=== PATIENT | male | born 1940 | race Caucasian/White ===

== ENCOUNTER 2017-04-11 14:17 | Inpatient (IN) | payer OTHER ==
[~2017-04-11] VITALS: Ht 162.6 cm; Wt 59.0 kg
--- NOTE | ~2017-04-11 | HC ---
[facility] [place] [address] CONSULTATION Name: ISAIAH HOWARD Room #: 422-P [facility] IN M.R.#: [id number] Admission: 04/11/17 Attend Phys: Grayson Humphrey MD Discharge: Date of : 40 Report #: [id number] THIS REPORT FOR: //name// CC: Grayson Humphrey DATE OF SERVICE: 04/12/2017 HISTORY OF PRESENT ILLNESS: The patient is a 76-year-old white male with history of Parkinson's disease, chronic kidney disease, BPH, recent prostate infection approximately 2 weeks ago. He has had problems with weakness, confusion and significant hypotension. He was being seen in his Nephrology office when he had a syncopal episode. He ended up being admitted to [facility]. He was noted to have orthostasis with autonomic dysfunction with his Parkinson's disease. He has been started on midodrine and Florinef. He has also been given normal saline and IV fluids. We are seeing him in rehabilitation medicine consultation. PAST MEDICAL HISTORY: Includes Parkinson's disease, chronic kidney disease, autonomic dysfunction. PAST SURGICAL HISTORY: Cholecystectomy, vasectomy. ALLERGIES: No known drug allergies. MEDICATIONS: Please see the full medication listing. HABITS: No history of tobacco or alcohol abuse. SOCIAL HISTORY: Lives in a house with his . He could partially feed himself, but could not get the food, actually close than about 2 feet from his mouth when his tremor would significantly increase making it difficult. He also was able to assist with his shirt, but again his was involved to further help him with cares. He utilized a walker at home. They live in a house with no steps. Both are retired. REVIEW OF SYSTEMS: Did not offer any current complaints of chest pain, shortness of breath or abdominal discomfort. Biggest issue is the orthostatic hypotension and syncope along with his functional deficits from the Parkinson's. FAMILY HISTORY: Noncontributory. PHYSICAL EXAMINATION: GENERAL: A 76-year-old white male in no obvious distress. He is alert, pleasant. Tends to defer number of the answers to his . He is able to express himself, reasonably well, however. [facility] [address] [place] [address] CONSULTATION Name: ISAIAH HOWARD Room #: 422-P [facility] IN .R.#: [id number] Admission: 04/11/17 Attend Phys: Grayson Humphrey MD Discharge: Date of : 40 Report #: [id number] VITAL SIGNS: Last recorded temperature is 98, pulse 54, respirations 16, blood pressure 143/55. HEENT: He does have some evidence of masked facies. Facies appeared symmetric. EXTREMITIES: Upper extremities, he does have some cogwheeling of the wrists and elbows. Strength is probably a grade 3+/5. Lower extremities: He does have some rigidity. There is no focal calf swelling. Strength is 3+ to 4-/5. DTRs are somewhat difficult to test with this rigidity. He does need assistance with basic functional mobility skills. ASSESSMENT: A 76-year-old white male with the following problem list: 1. Parkinson's disease. 2. Orthostasis with syncopal episode. 3. Autonomic dysfunction. 4. Significant functional mobility and activities of daily living deficits. 5. Chronic kidney disease. 6. History of depression. 7. History of prostate infection a couple of weeks ago. PLAN: Would anticipate that the patient should be a good acute in-hospital inpatient rehabilitation candidate. Physical therapy is currently assessing. There are significant issues with his orthostasis, autonomic dysfunction, medication management. Nephrology is involved and they could continue to follow when he comes over to the rehab [facility]. This would not occur if he would go to a retirement facility. At this point, we are going to continue to follow along with you, see how he does in physical therapy and consider him for a short acute in-hospital inpatient rehabilitation stay. Discussion was held with the patient's . We will be glad to follow along with you. By: 1449 0220 Fred Loaiza MD /BEATA
--- NOTE | ~2017-04-11 | HC ---
[facility] [place] [address] CONSULTATION Name: ISAIAH HOWARD Room #: 422-P [facility] IN M.R.#: [id number] Admission: 04/11/17 Attend Phys: Grayson Humphrey MD Discharge: 04/13/17 Date of : 40 Report #: [id number] THIS REPORT FOR: //name// CC: Grayson Humphrey DATE OF SERVICE: 04/12/2017 REASON FOR CONSULTATION: Chronic kidney disease and orthostatic hypotension. HISTORY OF PRESENT ILLNESS: The patient is well known to our service with rather severe and progressive Parkinson's disease and chronic kidney disease with a baseline creatinine approximately 2 or so. He has developed progressive weakness and presyncope with sitting and standing, was seen in the office yesterday with very low blood pressures and admitted. Blood pressures were in the 60s and at one point we could not record a blood pressure he had semi-syncopal episode, now much better. He has been treated with IV fluids, midodrine and Florinef. PAST MEDICAL HISTORY: He has had some evidence of BPH. He has been started on Flomax. He has longstanding, severe and progressive Parkinson's disease. He has got the CKD status post episode of acute kidney injury, status post episode of sepsis probably 6-7 years ago at [facility]. He has had in addition history of prior hypertension and cholecystectomy. SOCIAL HISTORY: Lives at home with his , no cigarettes or alcohol. HOME MEDICATIONS: Xanax 0.5 mg t.i.d., Zoloft 100 mg daily, amantadine 100 mg daily, Protonix 40 mg daily, Sinemet 25/100 one bedtime, aspirin 81 mg daily. He has been on Keflex 500 mg b.i.d. and Flomax 0.4 mg daily. FAMILY HISTORY: Noncontributory. REVIEW OF SYSTEMS: GENERAL: He has been weak and having these presyncopal episodes. EYES: His vision has been okay. ENT: Hearing okay. No trouble with swallowing. ENDOCRINE: No diabetes or thyroid disease. RESPIRATORY: No shortness of breath, chest pain, pleuritic pain. CARDIAC: No angina, myocardial infarction, palpitations or swelling. GASTROINTESTINAL: No nausea, vomiting or diarrhea. Appetite has not been that good. GENITOURINARY: Bit of a sluggish urinary stream. NEUROLOGIC: He has had Parkinson's with tremor. Depression affect, decreased movement. [facility] [address] [place] [address] CONSULTATION Name: ISAIAH HOWARD Room #: 422-P [facility] IN ..#: [id number] Admission: 04/11/17 Attend Phys: Grayson Humphrey MD Discharge: 04/13/17 Date of : 40 Report #: [id number] PHYSICAL EXAMINATION: GENERAL: The patient was seen today, bright and alert, sitting up in bed. SKIN: Unremarkable. SKELETAL: Thin. HEENT: Extraocular movements are full. No scleral icterus. Hearing and vision intact. Mucous membranes moist. Tongue, buccal mucosa benign. NECK: Supple, no JVD. CHEST: Clear to auscultation. HEART: Regular. ABDOMEN: Soft, nontender. EXTREMITIES: No edema. LABORATORY DATA: Creatinine 2.4, down to 2.0. ASSESSMENT AND PLAN: 1. Chronic kidney disease, relatively stable. 2. Postural hypotension. Some of the medications may be contributing including Sinemet, Zoloft and Xanax. These may need to be adjusted. He has been started on midodrine and Florinef. He has got IV fluids overnight, he is doing much better. We will do orthostatic pressures and see what we can do about his symptoms. <ELECTRONICALLY SIGNED> By: Dani Alanis MD 04/14/17 1020 0958 1031 Dani Alanis MD /nt
--- NOTE | ~2017-04-11 | EKG ---
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
[2017-04-11 14:18] VITALS: BP 136/63
[2017-04-11 14:51] LABS: HEMATOCRIT 32.1 % (42.0-52.0); MCH 31.2 pg (26.0-34.0); MCHC 34.4 g/dL (28.0-37.0); MCV 90.5 fL (80.0-100.0); RBC 3.54 mil/uL (4.50-6.00); RDW 14.8 % (10.5-14.5); WBC 7.7 thou/uL (4.0-11.0)
[2017-04-11 14:56] LABS: ANION GAP 6 mmol/L (7-16); BUN 24 mg/dL (7-18); CALCIUM 8.9 mg/dL (8.5-10.1); CHLORIDE 106 mmol/L (98-107); CO2 26 mmol/L (21-32); CREATININE 2.4 mg/dL (0.7-1.3); GLUCOSE 99 mg/dL (74-106); POTASSIUM 4.7 mmol/L (3.5-5.1); SODIUM 138 mmol/L (136-145)
[2017-04-11 15:05] LABS: ALBUMIN 3.7 g/dL (3.4-5.0); ALKALINE PHOSPHATASE 88 U/L (46-116); MAGNESIUM 2.4 mg/dL (1.8-2.4); SGOT 28 U/L (15-37); SGPT 9 U/L (30-65); TOTAL BILIRUBIN 0.5 mg/dL (<0.1-1.0); TOTAL PROTEIN 6.9 g/dL (6.4-8.2); TROPONIN-I < 0.04 ng/mL (<0.04-0.07)
[2017-04-11 15:15] LABS: TOTAL CELL COUNT 100
[2017-04-11 15:16] LABS: PLATELET COUNT 219 thou/uL (150-400)
[2017-04-11 15:33] LABS: MANUAL DIFF YES
[2017-04-11 15:36] LABS: ABSOLUTE NEUTROPHILS 4.1 thou/uL (1.4-8.2)
[2017-04-11 16:03] VITALS: BP 137/88
[2017-04-11 16:21] VITALS: BP 137/88
[2017-04-11 16:57] VITALS: BP 137/88
[2017-04-11] MEDS ORDERED: FOLIC ACID1 MG PO (17:09)
[2017-04-11] MEDS ORDERED: XANAX 0.5 MG0.5 MG PO (17:09)
[2017-04-11] MEDS ORDERED: ZOLOFT100 MG PO (17:09)
[2017-04-11] MEDS ORDERED: AMANTADINE100 M1 PO (17:10)
[2017-04-11] MEDS ORDERED: PROTONIX40 M1 PO (17:10)
[2017-04-11] MEDS ORDERED: KEFLEX500 MG PO (17:11)
[2017-04-11] MEDS ORDERED: ASPIR 8181 MG PO (17:11)
[2017-04-11] MEDS ORDERED: SINEMET 25-1001 EAC1 PO (17:11)
[2017-04-11] MEDS ORDERED: FLOMAX0.4 MG PO (17:12)
[2017-04-11] MEDS ORDERED: METAFOLBIC TAB1 EACH PO (17:13)
[2017-04-11] MEDS ORDERED: ALBUTEROL2.5 MG/31 INH (17:14)
[2017-04-11] MEDS ORDERED: COLACE100 MG PO (18:23)
[2017-04-11] MEDS ORDERED: MIRALAX17 GM PO (18:24)
[2017-04-11 19:35] LABS: URINE BILIRUBIN NEGATIVE (Negative); URINE BLOOD NEGATIVE (Negative); URINE COLOR YELLOW; URINE GLUCOSE-RANDOM* NEGATIVE (Negative); URINE KETONES NEGATIVE (Negative); URINE LEUKOCYTES-REFLEX NEGATIVE (Negative); URINE PROTEIN (DIPSTICK) NEGATIVE (Negative); URINE UROBILINOGEN 0.2 E.U./dl (0.2-1.0)
[2017-04-11 20:56] VITALS: BP 157/71
[2017-04-12 05:38] VITALS: BP 137/77
[2017-04-12 06:34] LABS: HEMATOCRIT 25.8 % (42.0-52.0); MCH 30.5 pg (26.0-34.0); MCHC 33.8 g/dL (28.0-37.0); MCV 90.3 fL (80.0-100.0); RBC 2.85 mil/uL (4.50-6.00); RDW 14.4 % (10.5-14.5); WBC 5.4 thou/uL (4.0-11.0)
[2017-04-12 06:42] LABS: HEMOGLOBIN 8.7 gm/dL (14.0-18.0)
[2017-04-12 07:14] LABS: ALBUMIN 2.8 g/dL (3.4-5.0); CALCIUM 7.8 mg/dL (8.5-10.1); PHOSPHORUS 3.2 mg/dL (2.5-4.9); POTASSIUM 4.3 mmol/L (3.5-5.1)
[2017-04-12 08:00] VITALS: BP 143/55
[2017-04-12 10:40] VITALS: BP 114/53; BP 80/53
[2017-04-12] MEDS ORDERED: MIDODRINE HCL 55 M1 PO (10:57)
[2017-04-12 16:00] VITALS: BP 96/40
[2017-04-12 16:20] VITALS: BP 167/53
[2017-04-12 19:18] VITALS: BP 170/65
[2017-04-13 01:30] VITALS: BP 104/53; BP 148/54
[2017-04-13 03:00] VITALS: BP 148/54
[2017-04-13 07:01] LABS: ABSOLUTE NEUTROPHILS 4.2 thou/uL (1.4-8.2); BASOPHILS 0.7 % (0.0-2.0); EOSINOPHILS 5.8 % (0.0-3.0); HEMOGLOBIN 9.2 gm/dL (14.0-18.0); LYMPHOCYTES 25.2 % (24.0-44.0); MCH 30.7 pg (26.0-34.0); MCV 90.2 fL (80.0-100.0); MONOCYTES 8.4 % (1.0-8.0); PLATELET COUNT 160 thou/uL (150-400); POLYS 59.9 % (36.0-66.0); RBC 2.99 mil/uL (4.50-6.00); RDW 14.5 % (10.5-14.5)
[2017-04-13 07:04] LABS: MANUAL DIFF NO
[2017-04-13 07:21] LABS: CALCIUM 8.2 mg/dL (8.5-10.1); POTASSIUM 3.6 mmol/L (3.5-5.1); TOTAL BILIRUBIN 0.4 mg/dL (<0.1-1.0); TOTAL PROTEIN 5.6 g/dL (6.4-8.2)
[2017-04-13 07:50] VITALS: BP 148/56
[2017-04-13] MEDS ORDERED: MIDODRINE HCL 55 M1 PO (09:17)
[2017-04-13] MEDS ORDERED: FLORINEF ACETA0.1 MG PO (11:03)
== END 2017-04-13 11:39 | DRG 73 ==
LOC: ER 14:17 → 4E 15:29 → EROBS 15:29 → 4E 16:49
PROVIDERS: Emergency Medicine; Internal Medicine; Internal Medicine Nephrology; Nurse Practitioner Family
DX: G90.8 Other disorders of autonomic nervous system (principal); N17.0 Acute kidney failure with tubular necrosis; I95.1 Orthostatic hypotension; N18.9 Chronic kidney disease, unspecified; G20 Parkinson's disease; F32.9 Major depressive disorder, single episode, unspecified; N40.0 Benign prostatic hyperplasia without lower urinary tract symptoms; T42.8X5A Adverse effect of antiparkinsonism drugs and other central muscle-tone depressants, initial encounter; T43.225A Adverse effect of selective serotonin reuptake inhibitors, initial encounter; T44.6X5A Adverse effect of alpha-adrenoreceptor antagonists, initial encounter; Z90.49 Acquired absence of other specified parts of digestive tract; Z79.82 Long term (current) use of aspirin; Z87.891 Personal history of nicotine dependence; Z79.899 Other long term (current) drug therapy; Y92.89 Other specified places as the place of occurrence of the external cause
CPT/HCPCS: 10084

== ENCOUNTER 2017-04-13 11:13 | Inpatient (IN) | payer OTHER ==
[~2017-04-13] VITALS: Ht 162.6 cm; Wt 57.3 kg
--- NOTE | ~2017-04-13 | PLAN ---
[facility] [place] [address] REHAB UNIT PLAN OF CARE Name: ISAIAH HOWARD Room #: 514-P ADM IN M.R.#: [id number] Admission: 04/13/17 Attend Phys: Fred Loaiza MD Discharge: Date of : 40 Report #: [id number] THIS REPORT FOR: //name// CC: Fred Beachhen Kam DATE OF SERVICE: 04/15/2017 HISTORY OF PRESENT ILLNESS: The patient is seen back today in followup. He was in no distress. Temperature 36.4, pulse 64, respirations 16, blood pressure 145/91. Nephrology is involved to check blood pressure sitting and standing. Noted to have increased midodrine. He has Parkinson's disease with advanced disease and autonomic dysfunction. Functionally, transfers are max assist. Gait mod assist 4 feet and OT, lower body dressing is dependent. Speech therapy, he has [id number] comprehensive deficits. ASSESSMENT: 1. Parkinson's disease. 2. Orthostasis with syncopal episode. 3. Autonomic dysfunction. 4. Significant functional mobility and ADL deficits. 5. Chronic kidney disease. 6. History of depression. 7. History of prostate infection. PLAN: The overall plan of care is based on the preadmission screen, post-admission physician evaluation and information garnered from therapy assessments. 1. Estimated length of stay is probably around 1-2 weeks, which was discussed with his . 2. Medical prognosis is reasonably good. 3. Anticipated interventions includes the interdisciplinary acute inpatient rehabilitation program with the goal of maximizing the patient's functional independence, so that he can hopefully return back to his prior living situation. 4. Anticipated functional outcomes would be for the patient to become modified independent with transfers, mobility and ADLs as well as his cognition and communication, so that he can return back to the home setting. He will be involved with the interdisciplinary acute inpatient rehabilitation program. Nursing to assist regarding medication management, skin care prophylaxis, bowel and bladder issues and nursing education. The applications consultant physicians will continue to follow. 5. Anticipated functional outcomes would be for the patient to hopefully improve as far as basic transfers, ability to do his ADLs, improve as far as his orthostasis, so he does not have the syncopal episodes with activity and improve as far as cognition and communication issues. 6. Discharge destination is back to the home setting with his . 7. Expected therapy by discipline includes PT, OT and speech [address] [place] [address] REHAB UNIT PLAN OF CARE Name: ISAIAH HOWARD Room #: 514-P [facility] IN .R.#: [id number] Admission: 04/13/17 Attend Phys: Fred Loaiza MD Discharge: Date of : 40 Report #: [id number] hour per day, each five days a week throughout the duration of the acute inpatient rehabilitation stay. <ELECTRONICALLY SIGNED> By: Fred Loaiza MD 04/22/17 1423 0856 2302 Fred Loaiza MD /BEATA
--- NOTE | ~2017-04-13 | HC ---
[facility] [place] [address] CONSULTATION Name: ISAIAH HOWARD Room #: 514-P [facility] IN M.R.#: [id number] Admission: 04/13/17 Attend Phys: Fred Loaiza MD Discharge: Date of : 40 Report #: [id number] THIS REPORT FOR: //name// CC: Fred Beachhen Kam DATE OF SERVICE: 04/13/2017 REASON FOR CONSULTATION: To assess psycho and neuropsychological status to provide information for treatment planning on the rehabilitation unit, to which he was admitted on 04/13/2017. HISTORY OF PRESENT ILLNESS: Records indicate that the patient is a 76-year-old white male with a history of Parkinson disease and chronic kidney disease. He has recently had problems with weakness, confusion and significant hypotension. He was being seen in his nephrology office when he had a syncopal episode. He stated to this program writer that earlier that day, he had been unable to get out of bed. The history and physical assessment by Dr. Loaiza listed the following problem list: 1. Parkinson disease. 2. Orthostasis with syncopal episode. 3. Autonomic dysfunction. 4. Significant functional mobility and ADL deficits. 5. Chronic kidney disease. 6. History of depression. 7. History of prostate infection 2 weeks prior. EXAMINATION FINDINGS: The patient was examined in his hospital room, seated in a recliner, and was alert and awake and agreeable to speak with this program writer. He was able to report the events leading up to his admission and to discuss his recent and remote past with very good detail. 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 He reported that his Parkinson disease eventually became so serious that he could not do this work anymore and he is now unable to drive for the same reason. Mood was observed to be euthymic and when asked to discuss his mood, he stated that "it was pretty good and volunteered. I do not have any suicidal tendencies." He stated that he anticipates recovering and returning to his prior level of function. He reported he greatly enjoys his grandson's football games and wishes he could be there this week. The patient did complain that he finds himself leaning to the right and stated that this has not been a symptom that he noticed in the past. He did state that [facility] [address] [address] CONSULTATION Name: ISAIAH HOWARD Room #: 514-P [facility] IN M.R.#: [id number] Admission: 04/13/17 Attend Phys: Fred Loaiza MD Discharge: Date of : 40 Report #: [id number] he believes his Parkinson disease began many years ago while he was still working for the [employer], but it was just unrecognized at that time. He stated that he was cranky and had difficulty dealing with stress without becoming overly angry. This was back in the late before he retired in 1998. The mini-mental status examination 2 was utilized and the patient scored in the low average range at the 14th percentile with regard to his overall level of mental or cognitive functioning at this point. The only major deficit was in recall, in which he could not recall none of 3 previously registered words after 3 minutes. He was able to perform 4 of 5 steps of the calculation task and good measure of concentration and the only other difficulty had was with the figure copy, but this appeared to be due to his Parkinson symptoms. CONCLUSION: This patient presents as a pleasant, coherent and friendly 76-year-old man who has fairly good insight into his various diagnoses and who reports that he is motivated to work in rehab and to take a medical advice to facilitate his recovery. His mental status appears to be within normal limits with some slight deficits of memory and with obvious physical deficits due to the Parkinson disease, i.e., the tremor. 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 RECOMMENDATIONS: For full participation in the rehab program as he does not appear to need psychology or neuropsychology intervention at this time. <ELECTRONICALLY SIGNED> By: Fred Diane, PhD 04/22/17 1510 1950 0336 Fred Diane, PhD /nt
--- NOTE | ~2017-04-13 | H ---
[facility] [place] [address] HISTORY AND PHYSICAL Name: ISAIAH HOWARD Room #: 514-P [facility] IN M.R.#: [id number] Admission: 04/13/17 Attend Phys: Fred Loaiza MD Discharge: Date of : 40 Report #: [id number] THIS REPORT FOR: //name// CC: Fred Humphrey DATE OF SERVICE: 04/13/2017 HISTORY OF PRESENT ILLNESS: The patient is a 76-year-old white male with history of Parkinson's disease, chronic kidney disease, BPH, recent prostate infection approximately 2 weeks prior to his most recent admission. He has had problems with weakness, confusion, and significant hypotension. He was being seen in his Nephrology office when he had a syncopal episode. He ended up being admitted to [facility]. He was noted to have orthostasis with autonomic dysfunction with his Parkinson's disease. He was started on midodrine and Florinef. He was also given normal feeling with IV fluids. He was noted to have a significant functional deficits with his Parkinson's and the orthostasis and has now been admitted for an acute in-hospital inpatient rehabilitation stay. PAST MEDICAL HISTORY: Parkinson's disease, chronic kidney disease, autonomic dysfunction. PAST SURGICAL HISTORY: Cholecystectomy and vasectomy. ALLERGIES: No known drug allergies. MEDICATIONS: Please see the full medication listing. Each of these was individually reconciled upon admission and includes vitamins, herbals, and supplements. HABITS: No history of tobacco or alcohol abuse. SOCIAL HISTORY: Lives in a house with his . He could partially feed himself, but could not actually get the fluid closer than about 2 feet from his mouth when his tremor was significantly increased making it difficult. He was able to assist with his shirt, but his did help him further with cares. He did use a walker at home. They live in a house with no steps. Both are retired. REVIEW OF SYSTEMS: No complaints of chest pain, shortness of breath or abdominal discomfort. Problems continue to be the decreased functional mobility and ADLs and his orthostatic symptomatology. FAMILY HISTORY: Noncontributory. [facility] [address] [place] [address] HISTORY AND PHYSICAL Name: ISAIAH HOWARD Room #: 514-P [facility] IN M.R.#: [id number] Admission: 04/13/17 Attend Phys: Fred Loaiza MD Discharge: Date of : 40 Report #: [id number] PHYSICAL EXAMINATION: GENERAL: A 76-year-old white male in no distress. Admission vitals are being obtained. Vitals from yesterday prior to admission did show a significant orthostatic drop, decreasing to 80/53 with standing or with sitting it was 114/53. Later he dropped from 167/53 sitting to 96/40 standing. The orthostatic pressures have not been checked yet while on rehabilitation. NEUROLOGIC: He is alert, limited verbalization, we will typically defer to his . He can express himself and follow basic commands. He does have some evidence of mass. HEENT: Facies otherwise appeared symmetric. CHEST: Sounded clear to auscultation. CARDIOVASCULAR: Regular rate and rhythm. ABDOMEN: Bowel sounds positive, nontender. GENITOURINARY AND RECTAL: Deferred. Upper extremities reveal some cogwheeling of the risks and goals. Strength is probably a grade 3+/5. EXTREMITIES: He does have some rigidity with strength grade 3+ to 4-/5. DTRs are somewhat difficult to test with the rigidity. He needs assistance with basic functional mobility skills. He has not been seen by the therapist yet on rehabilitation, but he has been max assist with sit to stand. He has been ambulating a short distance, mod assist with a walker. ASSESSMENT: A 76-year-old white male with the following problem list: 1. Parkinson's disease. 2. Orthostasis with syncopal episode. 3. Autonomic dysfunction. 4. Significant functional mobility and ADL deficits. 5. Chronic kidney disease. 6. History of depression. 7. History of prostate infection a couple of weeks prior. PLAN: The patient is admitted for acute in-hospital inpatient rehabilitation. From a postadmission physician evaluation perspective, there are no relevant changes since the preadmission screening. Please see the above review of prior and current medical and functional conditions and comorbidities. Please see the patient's previous and current functional status. As far as risk of complications, he does have the above noted comorbidities. Initial plan of care involves the interdisciplinary acute inpatient rehabilitation program with goal of maximizing his functional independence, so he can hopefully return back to his prior living situation. Prognosis is reasonably good with estimated length of stay probably 1-2 weeks. Potential barriers would include his medical comorbidities and decreased functional status. The patient meets diagnostic criteria for an acute in-hospital inpatient rehabilitation stay. He meets medical necessity criteria. He does have the tolerance for an acute rehabilitation level of care and has appropriate discharge goals back to the home setting. We will have Nephrology continue to [address] [address] HISTORY AND PHYSICAL Name: ISAIAH HOWARD Room #: 514-P ADM IN M.R.#: [id number] Admission: 04/13/17 Attend Phys: Fred Loaiza MD Discharge: Date of : 40 Report #: [id number] follow along with internal medicine to try to further improve his orthostatic hypotension and autonomic dysfunction. We will be working on improving his strength and endurance and independence with the goal of returning him back home with his . <ELECTRONICALLY SIGNED> By: Fred Loaiza MD 04/22/17 1423 1204 1314 Fred Loaiza MD /[facility]
[~2017-04-13 11:13] MED LIST: ALBUTEROL2.5 MG/31 INH; AMANTADINE100 M1 PO; ASPIR 8181 MG PO; COLACE100 MG PO; FLOMAX0.4 MG PO; FLORINEF ACETA0.1 MG PO; FOLIC ACID1 MG PO; KEFLEX500 MG PO; METAFOLBIC TAB1 EACH PO; MIDODRINE HCL 55 M1 PO; MIRALAX17 GM PO; PROTONIX40 M1 PO; SINEMET 25-1001 EAC1 PO; XANAX 0.5 MG0.5 MG PO; ZOLOFT100 MG PO
[2017-04-13 12:00] VITALS: BP 98/37
[2017-04-13 20:05] VITALS: BP 174/69
[2017-04-14 04:35] LABS: HEMATOCRIT 26.5 % (42.0-52.0); HEMOGLOBIN 9.1 gm/dL (14.0-18.0); MCH 30.7 pg (26.0-34.0); MCHC 34.2 g/dL (28.0-37.0); MCV 89.8 fL (80.0-100.0); RBC 2.95 mil/uL (4.50-6.00); RDW 14.5 % (10.5-14.5); WBC 6.3 thou/uL (4.0-11.0)
[2017-04-14 04:37] LABS: CALCIUM 8.3 mg/dL (8.5-10.1); CREATININE 1.9 mg/dL (0.7-1.3); POTASSIUM 3.6 mmol/L (3.5-5.1)
[2017-04-14 14:24] LABS: URINE BILIRUBIN NEGATIVE (Negative); URINE BLOOD NEGATIVE (Negative); URINE COLOR YELLOW; URINE GLUCOSE-RANDOM* NEGATIVE (Negative); URINE KETONES NEGATIVE (Negative); URINE LEUKOCYTES-REFLEX NEGATIVE (Negative); URINE PROTEIN (DIPSTICK) NEGATIVE (Negative); URINE UROBILINOGEN 0.2 E.U./dl (0.2-1.0)
[2017-04-14 20:25] VITALS: BP 159/76
[2017-04-15 04:20] VITALS: BP 133/49
[2017-04-15 04:21] VITALS: BP 140/73
[2017-04-15 08:16] VITALS: BP 145/91; BP 156/78
[2017-04-15 19:48] VITALS: BP 173/83
[2017-04-16 07:58] LABS: ALBUMIN 3.1 g/dL (3.4-5.0); CALCIUM 8.5 mg/dL (8.5-10.1); PHOSPHORUS 3.8 mg/dL (2.5-4.9); POTASSIUM 4.3 mmol/L (3.5-5.1)
[2017-04-16 10:04] VITALS: BP 172/55
[2017-04-16 13:30] VITALS: BP 165/81
[2017-04-16 17:15] VITALS: BP 177/78
[2017-04-16 20:15] VITALS: BP 169/66
[2017-04-17 11:35] VITALS: BP 124/57
[2017-04-17 11:40] VITALS: BP 100/54
[2017-04-17 20:37] VITALS: BP 181/65
[2017-04-17 20:42] VITALS: BP 118/101
[2017-04-18 07:06] LABS: ALBUMIN 3.1 g/dL (3.4-5.0); CALCIUM 8.4 mg/dL (8.5-10.1); PHOSPHORUS 3.7 mg/dL (2.5-4.9); POTASSIUM 3.8 mmol/L (3.5-5.1)
[2017-04-18 08:00] VITALS: BP 156/79
[2017-04-18 08:05] VITALS: BP 147/74
[2017-04-18] MEDS ORDERED: ECONAZOLE 1% CR30 G1 TOP (14:41)
[2017-04-18 20:05] VITALS: BP 183/61
[2017-04-19 06:41] LABS: CALCIUM 8.4 mg/dL (8.5-10.1); PHOSPHORUS 3.9 mg/dL (2.5-4.9); POTASSIUM 3.9 mmol/L (3.5-5.1)
[2017-04-19 08:11] VITALS: BP 149/56
[2017-04-19 19:33] VITALS: BP 170/72
[2017-04-20 09:00] VITALS: BP 112/51; BP 121/54
[2017-04-20 21:37] VITALS: BP 175/68
[2017-04-21 08:00] VITALS: BP 171/68
[2017-04-21 19:51] VITALS: BP 157/70
[2017-04-22 08:00] VITALS: BP 117/46; BP 138/67
[2017-04-22 20:00] VITALS: BP 135/59
[2017-04-23 08:30] VITALS: BP 163/73
[2017-04-23 19:40] VITALS: BP 141/93
[2017-04-24 08:15] VITALS: BP 177/64
[2017-04-24 11:38] VITALS: BP 157/61
[2017-04-24 21:09] VITALS: BP 151/68
[2017-04-25 07:34] LABS: ALBUMIN 3.1 g/dL (3.4-5.0); CALCIUM 8.2 mg/dL (8.5-10.1); CREATININE 1.9 mg/dL (0.7-1.3); PHOSPHORUS 3.2 mg/dL (2.5-4.9); POTASSIUM 4.1 mmol/L (3.5-5.1)
[2017-04-25 08:27] VITALS: BP 167/76
[2017-04-25 11:56] VITALS: BP 150/66
[2017-04-25 20:30] VITALS: BP 156/65
[2017-04-26 07:49] VITALS: BP 152/67
[2017-04-26 11:45] VITALS: BP 149/52
[2017-04-26 20:01] VITALS: BP 177/65
[2017-04-27] MEDS ORDERED: FLORINEF ACETA0.1 MG PO (07:47)
[2017-04-27 09:35] VITALS: BP 165/97
[2017-04-27] MEDS ORDERED: MIDODRINE HCL 55 M1 PO (09:59)
[2017-04-27 12:20] VITALS: BP 165/97
[2017-04-27 14:40] VITALS: BP 165/97
[2017-04-27 14:41] VITALS: BP 165/97
== END 2017-04-27 14:30 | disposition home health service (06) | DRG 57 ==
PROVIDERS: Hospitalist; Internal Medicine Nephrology; Nurse Practitioner Family; Physical Medicine & Rehabilitation
DX: G20 Parkinson's disease (principal); F32.9 Major depressive disorder, single episode, unspecified; N18.9 Chronic kidney disease, unspecified; G90.8 Other disorders of autonomic nervous system; N40.0 Benign prostatic hyperplasia without lower urinary tract symptoms; I95.1 Orthostatic hypotension; K21.9 Gastro-esophageal reflux disease without esophagitis; R53.81 Other malaise; K59.00 Constipation, unspecified; R30.0 Dysuria; R03.0 Elevated blood-pressure reading, without diagnosis of hypertension; J45.909 Unspecified asthma, uncomplicated; M25.571 Pain in right ankle and joints of right foot; Z98.52 Vasectomy status; Z90.49 Acquired absence of other specified parts of digestive tract
CPT/HCPCS: 10112

== ENCOUNTER 2017-05-30 12:27 | Inpatient (IN) | payer OTHER ==
[~2017-05-30] VITALS: Ht 162.6 cm; Wt 55.2 kg
--- NOTE | ~2017-05-30 | HC ---
[facility] [place] [address] CONSULTATION Name: ISAIAH HOWARD Room #: 446-P [facility] IN .R.#: [id number] Admission: 05/30/17 Attend Phys: Pratik Mustafa MD Discharge: Date of : 40 Report #: [id number] THIS REPORT FOR: //name// CC: Pratik Beachhen Kam DATE OF SERVICE: 05/31/2017 ATTENDING PHYSICIAN: Dr. Mustafa. REASON FOR CONSULTATION: Chronic kidney disease. HISTORY OF PRESENT ILLNESS: The patient is extremely well known to our service with progressive Parkinson disease and chronic kidney disease with a baseline creatinine that runs between 2 and 2.5. He was recently hospitalized in the acute care setting and the rehab setting with severe orthostatic hypotension and was treated with multiple medications including midodrine and Florinef. He stabilized. He did well with his rehabilitation, was felt ready to go home and was doing reasonably well at home until 2 days ago when he fell or hurt his hip, could not walk and was readmitted. His creatinine was 2.5, more or less at his baseline serum creatinine. PAST MEDICAL HISTORY: Parkinson disease. He has a previous episode of acute renal failure, which for the most part resolved, but he is left with some chronic kidney disease. He has severe autonomic neuropathy with orthostatic hypotension as mentioned previously, treated with Florinef and midodrine, and his Parkinson's treated with Sinemet and amantadine. Also remarkable for benign prostatic hypertrophy, he has been on Flomax and has had hypertension and a previous cholecystectomy. SOCIAL HISTORY: Lives at home with his . No cigarettes or alcohol. FAMILY HISTORY: Noncontributory. REVIEW OF SYSTEMS: GENERAL: He had been doing reasonably well at home. He is chronically weak, can walk just a little bit with his walker. EYES: No trouble with his vision. ENT: Hearing okay, swallows okay. ENDOCRINE: No diabetes or thyroid disease. RESPIRATORY: Denies shortness of breath, chest pain or pleuritic pain. CARDIAC: No angina, myocardial infarction, palpitations or leg swelling. GASTROINTESTINAL: No nausea, vomiting or diarrhea. GENITOURINARY: Urinary stream fair. NEUROLOGIC: He has Parkinson's with tremor, flat affect, decreased movement disorder and the orthostatic hypotension. [address] [address] CONSULTATION Name: ISAIAH HOWARD Room #: 446-P [facility] IN M.R.#: [id number] Admission: 05/30/17 Attend Phys: Pratik Mustafa MD Discharge: Date of : 40 Report #: [id number] PHYSICAL EXAMINATION: GENERAL: Awake and alert, sitting up in his chair. SKIN: Unremarkable. SKELETAL: Thin, nonobese. HEENT: Extraocular movements are full. No scleral icterus. Hearing and vision intact. Mucous membranes moist. Tongue, buccal mucosa benign. NECK: Supple, no JVD. CHEST: Clear to auscultation. HEART: Regular. ABDOMEN: Soft, nontender. EXTREMITIES: Show no edema, but tenderness in the area of the right hip. LABORATORY DATA: Interestingly, the hemoglobin has fallen from 9.2 to 7.1, creatinine is 2.4. Electrolytes are fine. ASSESSMENT AND PLAN: 1. Chronic kidney disease, reasonably stable, more or less close to his usual baseline. 2. Orthostatic hypotension, had been stabilized and was doing well on Florinef and midodrine, may need to be readdressed. 3. Anemia. Hemoglobin dropping, I am a little worried about some internal bleeding and I will get a CT abdomen and pelvis without contrast. <ELECTRONICALLY SIGNED> By: Dani Alanis MD 06/03/17 1044 1108 [id number] Dani Alanis MD /nt
--- NOTE | ~2017-05-30 | HC ---
[facility] [place] [address] CONSULTATION Name: ISAIAH HOWARD Room #: 446-P [facility] IN ..#: [id number] Admission: 05/30/17 Attend Phys: Pratik Mustafa MD Discharge: 06/03/17 Date of : 40 Report #: [id number] THIS REPORT FOR: //name// CC: Pratik Beachhen Kam DATE OF SERVICE: 06/01/2017 HISTORY OF PRESENT ILLNESS: The patient is a 76-year-old male with a prior history of Parkinson's disease who was on the acute inpatient rehab [facility] from 04/13/2017 through 04/27/2017. The patient was admitted for Parkinson's disease, autonomic dysfunction, orthostasis. He was followed by Nephrology as well as Internal Medicine and did progress within the rehab program to the point where he was ambulating 100 feet front-wheeled walker with min assist and transfers are mod assist. He was back home with his and unfortunately had an episode when he felt dizzy and slipped to the floor. Complained of some pain over his trochanters, but x-rays of his hips have been negative. He does have problems with chronic hypotension, autonomic versus orthostatic. He also has crgnx-rd-bvrefdi renal insufficiency. Nephrology has been involved. We are seeing him in rehabilitation medicine consultation. PAST MEDICAL HISTORY: Includes Parkinson's disease, chronic kidney disease, autonomic dysfunction. PAST SURGICAL HISTORY: Cholecystectomy and vasectomy. ALLERGIES: No known drug allergies. HABITS: No history of tobacco or alcohol abuse. MEDICATIONS: Please see the full medication listing. SOCIAL HISTORY: Continues to live in a house with his . did help with basic cares. He did use a walker at home. They live in a house with no steps. Both are retired. FAMILY HISTORY: Noncontributory. REVIEW OF SYSTEMS: No current complaints of chest pain, shortness of breath, abdominal discomfort. He has complaints over both hips as noted above. He is a very limited historian. PHYSICAL EXAMINATION: GENERAL: A 76-year-old white male in no obvious distress. VITAL SIGNS: Last recorded temperature 98.3, pulse 72, respirations 20, blood pressure 154/53. [facility] [address] [place] [address] CONSULTATION Name: ISAIAH HOWARD Room #: 446-P [facility] IN [facility].#: [id number] Admission: 05/30/17 Attend Phys: Pratik Mustafa MD Discharge: 06/03/17 Date of : 40 Report #: [id number] NEUROLOGIC: The patient is alert, very limited historian tends to defer to his . HEENT: Facies are symmetric. EXTREMITIES: He has functional range of motion of both upper extremities with strength grade 4- to 3+/5. He has evidence of cogwheeling with rigidity. In his lower extremities, he has some mild tenderness over the lateral hips. He does reasonably well with range of motion of both lower extremities without significant pain complaints. No focal calf swelling. He does have some rigidity of the lower extremities. He is needing max assist with sit to stand, tends to be retropulsive with loss of balance posteriorly. ASSESSMENT: A 76-year-old white male with the following problem list: 1. Parkinson's disease. 2. History of falls. 3. Chronic hypotension, autonomic versus orthostatic. 4. Acute anemia. Apparently to be transfused today. 5. Acute on chronic renal failure. PLAN: The patient just had an acute inpatient rehab [facility] stay and does not meet diagnostic criteria for another stay on the acute rehab [facility]. Would agree with a shelter facility stay this time, as he further medically stabilizes. Discussion was held with the patient's . Thank you for asking us to assist in this patient's care. <ELECTRONICALLY SIGNED> By: Fred Loaiza MD 06/06/17 1219 1120 1510 Fred Loaiza MD /[facility]
[2017-05-30 12:27] VITALS: BP 152/50
[~2017-05-30 12:27] MED LIST changes: +ECONAZOLE 1% CR30 G1 TOP
[2017-05-30 14:39] LABS: BASOPHILS 0.8 % (0.0-2.0); EOSINOPHILS 7.7 % (0.0-3.0); HEMATOCRIT 27.1 % (42.0-52.0); HEMOGLOBIN 9.2 gm/dL (14.0-18.0); LYMPHOCYTES 29.9 % (24.0-44.0); MCH 31.3 pg (26.0-34.0); MCHC 33.8 g/dL (28.0-37.0); MCV 92.7 fL (80.0-100.0); MONOCYTES 7.8 % (1.0-8.0); PLATELET COUNT 236 thou/uL (150-400); POLYS 53.8 % (36.0-66.0); RBC 2.93 mil/uL (4.50-6.00); WBC 7.5 thou/uL (4.0-11.0)
[2017-05-30 14:42] LABS: MANUAL DIFF NO
[2017-05-30 14:47] LABS: CALCIUM 8.6 mg/dL (8.5-10.1); CREATININE 2.5 mg/dL (0.7-1.3); POTASSIUM 3.9 mmol/L (3.5-5.1)
[2017-05-30 14:58] VITALS: BP 130/101
[2017-05-30 15:06] LABS: URINE BILIRUBIN NEGATIVE (Negative); URINE BLOOD 1+ (Negative); URINE COLOR YELLOW; URINE GLUCOSE-RANDOM* NEGATIVE (Negative); URINE KETONES TRACE (Negative); URINE NITRITE NEGATIVE (Negative); URINE PROTEIN (DIPSTICK) NEGATIVE (Negative); URINE SPECIFIC GRAVITY 1.025 (1.005-1.035); URINE UROBILINOGEN 0.2 E.U./dl (0.2-1.0)
[2017-05-30 15:22] LABS: HYALINE CASTS 0-3 Few /LPF (None Seen); URINE RBC 0-2 Rare /HPF (0-2); URINE WBC 0-5 Rare /HPF (0-5)
[2017-05-30 15:23] LABS: BACTERIA 1-9 Few /HPF (None Seen); CRYSTALS None Seen /LPF (None Seen); SQUAMOUS 0-3 Few /LPF (0-3); TRANSITIONAL EPITHEL CELL 0-3 Few /LPF (None Seen)
[2017-05-30 15:33] VITALS: BP 169/71
[2017-05-30 16:02] VITALS: BP 158/75
[2017-05-30 19:41] VITALS: BP 146/51
[2017-05-31 03:49] VITALS: BP 116/55
[2017-05-31 04:03] LABS: CALCIUM 7.8 mg/dL (8.5-10.1); CREATININE 2.4 mg/dL (0.7-1.3); POTASSIUM 4.4 mmol/L (3.5-5.1)
[2017-05-31 04:24] LABS: WBC 5.6 thou/uL (4.0-11.0)
[2017-05-31 04:26] LABS: MCHC 34.7 g/dL (28.0-37.0); MCV 92.3 fL (80.0-100.0); RBC 2.09 mil/uL (4.50-6.00)
[2017-05-31 04:52] LABS: HEMATOCRIT 19.3 % (42.0-52.0); HEMOGLOBIN 6.7 gm/dL (14.0-18.0)
[2017-05-31 08:09] VITALS: BP 154/74
[2017-05-31 09:41] LABS: HEMATOCRIT 21.1 % (42.0-52.0); HEMOGLOBIN 7.1 gm/dL (14.0-18.0)
[2017-05-31 16:15] VITALS: BP 152/72
[2017-05-31 19:34] VITALS: BP 145/61
[2017-06-01 03:40] VITALS: BP 152/65
[2017-06-01 08:29] VITALS: BP 154/53
[2017-06-01 08:56] LABS: WBC 5.6 thou/uL (4.0-11.0)
[2017-06-01 08:58] LABS: MCH 31.3 pg (26.0-34.0); MCHC 33.7 g/dL (28.0-37.0); MCV 92.7 fL (80.0-100.0); RBC 2.04 mil/uL (4.50-6.00); RDW 14.9 % (10.5-14.5)
[2017-06-01 09:03] LABS: HEMOGLOBIN 6.4 gm/dL (14.0-18.0)
[2017-06-01 09:04] LABS: HEMATOCRIT 18.9 % (42.0-52.0)
[2017-06-01 09:07] LABS: CREATININE 2.1 mg/dL (0.7-1.3); POTASSIUM 4.3 mmol/L (3.5-5.1)
[2017-06-01 09:50] LABS: % SATURATION 38 % (20-39); IRON 46 ug/dL (65-175); TIBC 121 ug/dL (250-450); UIBC 75 ug/dL
[2017-06-01 10:58] LABS: FOLIC ACID 38.1 ng/mL (8.6-58.9)
[2017-06-01 14:26] VITALS: BP 154/89
[2017-06-01 16:28] VITALS: BP 154/89; BP 160/64
[2017-06-01 16:37] VITALS: BP 161/54
[2017-06-01 21:06] VITALS: BP 165/57
[2017-06-02 08:34] LABS: ABSOLUTE NEUTROPHILS 3.9 thou/uL (1.4-8.2); BASOPHILS 0.6 % (0.0-2.0); EOSINOPHILS 8.3 % (0.0-3.0); HEMATOCRIT 24.2 % (42.0-52.0); HEMOGLOBIN 8.3 gm/dL (14.0-18.0); LYMPHOCYTES 23.4 % (24.0-44.0); MCH 31.5 pg (26.0-34.0); MCHC 34.5 g/dL (28.0-37.0); MCV 91.3 fL (80.0-100.0); MONOCYTES 7.9 % (1.0-8.0); PLATELET COUNT 139 thou/uL (150-400); POLYS 59.8 % (36.0-66.0); RBC 2.65 mil/uL (4.50-6.00); RDW 14.9 % (10.5-14.5); WBC 6.5 thou/uL (4.0-11.0)
[2017-06-02 08:37] LABS: MANUAL DIFF NO
[2017-06-02 08:44] VITALS: BP 153/57
[2017-06-02 16:21] VITALS: BP 157/76
[2017-06-02 21:23] VITALS: BP 182/67
[2017-06-03 05:15] VITALS: BP 178/68
[2017-06-03 07:30] VITALS: BP 169/69
[2017-06-03 11:18] VITALS: BP 166/84
[2017-06-03 11:19] VITALS: BP 141/52
[2017-06-03 11:21] LABS: HEMATOCRIT 25.5 % (42.0-52.0); HEMOGLOBIN 8.8 gm/dL (14.0-18.0); MCH 31.7 pg (26.0-34.0); MCHC 34.4 g/dL (28.0-37.0); MCV 92.3 fL (80.0-100.0); RBC 2.76 mil/uL (4.50-6.00); WBC 8.8 thou/uL (4.0-11.0)
[2017-06-03 11:32] LABS: CALCIUM 8.3 mg/dL (8.5-10.1); POTASSIUM 3.8 mmol/L (3.5-5.1)
== END 2017-06-03 15:00 | DRG 73 ==
LOC: ER 12:27 → EROBS 15:04 → 4S 15:04
PROVIDERS: Hospitalist; Internal Medicine; Nurse Practitioner; Nurse Practitioner Acute Care; Nurse Practitioner Family
PROC: 30233N1 Transfusion of Nonautologous Red Blood Cells into Peripheral Vein, Percutaneous Approach (ICD-10-PCS; principal; 2017-06-01)
DX: G90.8 Other disorders of autonomic nervous system (principal); N17.0 Acute kidney failure with tubular necrosis; S36.429A Contusion of unspecified part of small intestine, initial encounter; G20 Parkinson's disease; I95.1 Orthostatic hypotension; D64.9 Anemia, unspecified; R29.6 Repeated falls; N18.9 Chronic kidney disease, unspecified; N40.0 Benign prostatic hyperplasia without lower urinary tract symptoms; F32.9 Major depressive disorder, single episode, unspecified; M25.552 Pain in left hip; M25.551 Pain in right hip; I12.9 Hypertensive chronic kidney disease with stage 1 through stage 4 chronic kidney disease, or unspecified chronic kidney disease; R10.2 Pelvic and perineal pain; W18.39XA Other fall on same level, initial encounter; Z90.49 Acquired absence of other specified parts of digestive tract; Z79.899 Other long term (current) drug therapy; Z98.52 Vasectomy status; Y93.89 Activity, other specified; Y92.89 Other specified places as the place of occurrence of the external cause; Y99.8 Other external cause status
CPT/HCPCS: 10195

== ENCOUNTER → 2017-08-19 | Outpatient (CLI) | payer OTHER ==
--- NOTE | ~2017-08-19 | 2DMMODE ---
[facility] [place] [address] 2 D/M-MODE ECHOCARDIOGRAM Name: HOWARDISAIAH Room #: REG CL [facility]#: [id number] Admission: 08/19/17 Attend Phys: Fabian Barrera, Discharge: Date of : 40 Date of Service: 08/19/17 0848 Report #: [id number] THIS REPORT FOR: //name// APPROVED REPORT Study performed: 08/19/2017 07:59:51 EXAM: Comprehensive 2D, Doppler, and color-flow Echocardiogram Patient Location: Out-Patient Status: routine BSA: 1.57 HR: 63 bpm Rhythm: NSR Other Information Study Quality: Fair Technically limited study due to poor apical window.. Indications Congestive Heart Failure 2D Dimensions LVEF(%): 36.18 (>50%) IVSd: 12.72 (7-11mm) LVOT Diam: 19.79 (18-24mm) LVDd: 42.80 mm PWd: 12.61 (7-11mm) Ascending Ao: 30.52 (22-36mm) LVDs: 35.44 (25-40mm) Aortic Root: 30.24 mm Fontana's LVEF: 36.18 % Aortic Valve AoV Peak Lobo.: 0.70 m/s AO Peak Gr.: 1.95 mmHg LVOT Max P.04 mmHg LVOT Max V: 0.51 m/s KING Vmax: 2.24 cm2 Mitral Valve E/A Ratio: 0.6 MV Decel. Time: 282.50 ms MV E Max Lobo.: 0.34 m/s MV A Lobo.: 0.53 m/s MV PHT: 81.93 ms [facility] [address] [place] [address] 2 D/M-MODE ECHOCARDIOGRAM Name: LEEISAIAH Madelaine Room #: REG [facility]#: [id number] Admission: 08/19/17 Attend Phys: Fabian Barrera, Discharge: Date of : 40 Date of Service: 08/19/17 0848 Report #: [id number] Pulmonary Valve PV Peak Lobo.: 0.69 m/s PV Peak Gr.: 1.90 mmHg Tricuspid Valve TR Peak Lobo.: 2.10 m/s RAP Estimate: 5.00 mmHg TR Peak Gr.: 17.71 mmHg PA Pressure: 23.00 mmHg Left Ventricle The left ventricle is normal size. Mild concentric left ventricular hypertrophy. Left ventricular systolic function is moderate to severely decreased. LVEF 30-35%. Mild diastolic dysfunction is present (impaired relaxation pattern). Right Ventricle The right ventricle is normal size. Right ventricle is mildly hypokinetic. Atria Left atrium is dilated. The right atrium size is normal. Aortic Valve The aortic valve is mildly sclerotic, trileaflet. Mild to moderate aortic regurgitation. There is no aortic valvular stenosis. Mitral Valve The mitral valve is normal in structure. Mild mitral regurgitation. No evidence of mitral valve stenosis. Tricuspid Valve The tricuspid valve is normal in structure. Trace tricuspid regurgitation. Estimated PAP is 20-25mmHg. Pulmonic Valve The pulmonary valve is normal in structure. Mild pulmonic regurgitation. Great Vessels The aortic root is normal in size. The ascending aorta is normal in size. IVC is normal in size and collapses >50% with inspiration. Pericardium There is no pericardial effusion. [facility] [place] [address] 2 D/M-MODE ECHOCARDIOGRAM Name: ISAIAH HOWARD Room #: REG CL [facility]#: [id number] Admission: 08/19/17 Attend Phys: Fabian Barrera, Discharge: Date of : 40 Date of Service: 08/19/17847 Report #: [id number] <Conclusion> Left ventricular systolic function is moderate to severely decreased. Mild concentric left ventricular hypertrophy. LVEF 30-35%. Left atrium is dilated. The aortic valve is mildly sclerotic, trileaflet. Mild to moderate aortic regurgitation, no stenosis. The mitral valve is normal in structure. Mild mitral regurgitation. There is no pericardial effusion. <ELECTRONICALLY SIGNED> By: Phong Pop MD, [facility] 08/19/17847 7 7 Phong Pop MD, FACC /INF
== END ==
LOC: NUC 07:00
DX: I50.9 Heart failure, unspecified (principal); R94.31 Abnormal electrocardiogram [ECG] [EKG]

== ENCOUNTER 2018-07-23 13:02 | Inpatient (IN) | payer OTHER, BC ==
[~2018-07-23] VITALS: Ht 162.6 cm; Wt 57.5 kg
[2018-07-23 13:25] VITALS: BP 83/46
[2018-07-23] MEDS ORDERED: XANAX 0.25 MG0.25 MG (14:20)
[2018-07-23] MEDS ORDERED: KLOR-CON 1010 MEQ (14:24)
[2018-07-23] MEDS ORDERED: CARVEDILOL3.125 MG (14:25)
[2018-07-23] MEDS ORDERED: LASIX 20 MG TAB20 MG PO (14:25)
--- NOTE | 2018-07-23 16:44 | NUR ---
PT TRANSFERED FROM [facility] TO UNIT. ON ARRIVAL PT ALERT - ACCOMPANIED BY . ASSESSMENT CHARTED - IV FLUIDS STARTED ORDERED - MEDS PER AUG - PT WITH BREAKDOWN ON BOTTOM - PICTURE TAKEN AND PLACED IN CHART - PATIENT TURNED. - CREAM APPLIED AND DRESSING TO BOTTOM. PT HAS REMAINED NPO PER ORDERS. PT HAS BEEN SLEEPING ON AND OFF SINCE ARRIVING ON THE UNIT. NOTED TO HAVE A SWOLLEN AREA ON LEFT SIDE OF NECK - AK PAD OBTAINED FOR -MOIST PACK ORDERED- AND MEDS WILL BE GIVEN PRESCRIBED. REMAINS AT THE BEDSIDE. NO CO'S AT THE PRESENT TIME.
[2018-07-23 16:45] VITALS: BP 110/73
[2018-07-23 16:51] LABS: TSH 2.549 uIU/mL (0.358-3.740)
[2018-07-23 19:47] VITALS: BP 126/70
[2018-07-23 23:53] VITALS: BP 116/73
[2018-07-24 03:27] LABS: HEMATOCRIT 32.8 % (42.0-52.0); HEMOGLOBIN 10.4 gm/dL (14.0-18.0); MCH 32.3 pg (26.0-34.0); MCHC 31.8 g/dL (28.0-37.0); MCV 101.6 fL (80.0-100.0); RBC 3.23 mil/uL (4.50-6.00); RDW 18.6 % (10.5-14.5); WBC 11.9 thou/uL (4.0-11.0)
[2018-07-24 03:38] LABS: ALBUMIN 2.9 g/dL (3.4-5.0); CALCIUM 8.5 mg/dL (8.5-10.1); CREATININE 4.2 mg/dL (0.7-1.3); POTASSIUM 5.1 mmol/L (3.5-5.1); TOTAL PROTEIN 5.9 g/dL (6.4-8.2)
[2018-07-24 05:17] VITALS: BP 114/60
--- NOTE | 2018-07-24 05:46 | NUR ---
ASSUMED PT CARE AT 1900 WITH BEDSIDE REPORT TAKEN, PT IS ALERT AND NO FAMILY AT BEDSIDE. PTTI STABLE, VITAL SIGN STABLE. SCHEDULED MED ADMINISTERED TO PATIENT WITH APPLE SAUCE AND PATIENT TOLERATED PO INTAKE, PT IS CHRONIC AFIB ON THE MONITOR. NO SIGN OF DISTRESS NOTED IN PT. PT IS SLEEPS THROUGH THE NIGHT. CONTINUE TO MONITOR PATIENT.
[2018-07-24 07:10] VITALS: BP 129/83
--- NOTE | 2018-07-24 10:20 | NUR ---
met with patient, at bedside and gives hx as patient confused. Patient resides at home with . Ramp to enter home and not steps inside home. patient has a walker, wc, lift chair, a transfer pole in bedroom. reports she assists with all adls. She reports last year acute rehab at [facility] then went to [facility] for approx 7 weeks, then dc home with HH. They are current with [facility] health care. 5N consulted. Await eval. Casemgt following for dc planning.
--- NOTE | 2018-07-24 11:28 | NUR ---
PATIENT'S REFUSED OT EVALUATION, STATING SHE COMPLETES A SPONGE BATH BED LEVEL, THE PATIENT TRANSFERS OUT OF BED USING A TRANSFER POLE. SHE USES A W/C FOR MOBILITY IN THE HOUSE AND HE TRANSFERS TO THE TOILET, EQUIPPED WITH A SAFETY TOILET FRAME AND GRAB BARS ON THE WALL. SHE DOES NOT WANT OT SERVICES FOR HER . PLAN TO CONTACT DR. HAUSER.
[2018-07-24 11:30] VITALS: BP 111/78
[2018-07-24 15:45] VITALS: BP 118/65
--- NOTE | 2018-07-24 20:03 | NUR ---
ASSUMED CARE OF PT AT 0700. PT SLEEPING AND DOES NOT ANSWER QUESTIONS. PT IS SOMETIMES ABLE TO ANSWER YES/NO QUESTIONS. PT HAS PARKINSONS. HE FOLLOWS SOME COMMANDS. PT TURNED Q2H AND HAS WOUND CARE CONSULT FOR EXCORIATION TO [facility]. PT'S VITALS WERE WITHIN NORMAL LIMITS AND PT WAS AFIB WITH RATE IN 90-100'S ON TELEMETRY. PT HAS POOR CIRCULATION TO FINGERS AND THEY ARE PURPLE IN COLOR. PULSE OXIMETRY OBTAINED ON EARLOBE DUE TO POOR CIRCULATION. PT HAD LOW BLOOD SUGARS WHEN BLOOD TAKEN FROM FINGER FOR GLUCOSE CHECK. AT DINNER TIME METER READ "LOW" TWICE FROM FINGER STICK. DR. VANCE CALLED AND D50 GIVEN IV. VENOUS BLOOD SUGAR ORDERED AND TAKEN BEFORE D50 GIVEN. BLOOD SUGAR FROM VENOUS SAMPLE WAS 112. DR. VANCE NOTIFIED. PT ON PUREED AND HONEY THICK. SWALLOW PRECAUTIONS TAKEN BUT PT STILL COUGHS AFTER EATTING. PT HAS VERY POOR APPETITE. WILL CONT WITH POC.
[2018-07-24 20:15] VITALS: BP 128/82
[2018-07-25 03:42] LABS: ALBUMIN 2.7 g/dL (3.4-5.0); CALCIUM 8.3 mg/dL (8.5-10.1); CREATININE 4.5 mg/dL (0.7-1.3)
[2018-07-25 04:12] LABS: HEMATOCRIT 31.5 % (42.0-52.0); HEMOGLOBIN 9.9 gm/dL (14.0-18.0)
[2018-07-25 04:16] VITALS: BP 97/74
[2018-07-25 04:19] LABS: POTASSIUM 5.3 mmol/L (3.5-5.1)
--- NOTE | 2018-07-25 05:40 | NUR ---
ASSUMED PT CARE AT 1900 WITH NO SIGN OF DISTRESS NOTED, PT IS STABLE AND IS LAYING IN BEDSIDE, NO FAMILY AT BEDSIDE. PT IS STABLE AND IS CONNECTED TO CONTINUOUS PULSE OXIMETER. ASSESSMENT DOCUMENTED. SCHEDULED MED ADMINISTERED TO PT, PT TOLERATED PO INTAKE. PT IS LETHARGIC FOR MOST OF THE ASSESSMENT. NO FURTHER NEEDS AT THIS TIME.
[2018-07-25 07:10] VITALS: BP 112/70
--- NOTE | 2018-07-25 08:24 | EKG ---
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
[2018-07-25 10:04] LABS: URINE BILIRUBIN NEGATIVE (Negative); URINE BLOOD NEGATIVE (Negative); URINE CLARITY CLEAR; URINE COLOR YELLOW; URINE GLUCOSE-RANDOM* NEGATIVE (Negative); URINE KETONES NEGATIVE (Negative); URINE LEUKOCYTES NEGATIVE (Negative); URINE NITRITE NEGATIVE (Negative); URINE PROTEIN (DIPSTICK) NEGATIVE (Negative); URINE SPECIFIC GRAVITY >= 1.030 (1.005-1.035); URINE UROBILINOGEN 0.2 E.U./dl (0.2-1.0)
[2018-07-25 10:05] LABS: URINE CREATININE-RANDOM* 106.3 mg/dL
[2018-07-25 11:05] VITALS: BP 116/76
--- NOTE | 2018-07-25 11:27 | HC ---
[facility] [address] [place] [address] CONSULTATION Name: LEEISAIAH Burkett Room #: 201-P [facility] IN M.R.#: [id number] Admission: 07/23/18 Attend Phys: Torito Francois Discharge: Date of : 40 Report #: [id number] THIS REPORT FOR: //name// CC: Torito Stricklanddhara Drummond DATE OF SERVICE: 07/24/2018 REASON FOR CONSULTATION: Khcsq-gf-eqaorim kidney disease. HISTORY OF PRESENT ILLNESS: The patient is well known to our service with chronic kidney disease and a creatinine of 2 as well as Parkinson's disease, progressive dementia, progressive debility and history of cerebrovascular accident. He apparently has been having progressive debility, decreased intake, increasing falls with attempts to ambulate and came to the Emergency Room, found to have a creatinine up to 4.2 and was admitted. PAST MEDICAL HISTORY: Longstanding progressive Parkinson's disease with orthostatic hypotension; occasional falls; previous history of acute kidney injury, which never required dialysis I believe and from which he recovered nicely, the episode being secondary to sepsis. It should be noted that the patient is a poor historian with his dementia and also is somewhat dysarthric and so difficult to get a reasonable history from him. He does have benign prostatic hypertrophy by history, prior history of hypertension, previous cholecystectomy. REVIEW OF SYSTEMS: GENERAL: Difficult again to get the history. EYES: His vision seems okay. ENT: Hearing okay. No mouth sores or ulcers. I am unclear as to whether he has trouble swallowing. ENDOCRINE: No diabetes or thyroid disease. He does have the orthostatic hypotension. RESPIRATORY: Denies shortness of air. CARDIAC: No angina or NV. He does have chronic atrial fibrillation. GASTROINTESTINAL: Denies nausea or vomiting, apparently his p.o. intake has been poor. GENITOURINARY: Denies dysuria. NEUROLOGIC: He has Parkinson's disease with tremor, flat affect, some degree of movement disorder and orthostatic hypotension as well as progressive dementia. PHYSICAL EXAMINATION: GENERAL: This is a reasonably comfortable gentleman in no acute distress. SKIN: Unremarkable. [facility] [address] [place] [address] CONSULTATION Name: LEEISAIAH E Room #: 201-P [facility] IN M.R.#: [id number] Admission: 07/23/18 Attend Phys: Torito Francois Discharge: Date of : 40 Report #: [id number] SKELETAL: Shows him to be thin and progressively cachectic. HEENT: Extraocular movements are full. No scleral icterus. Hearing and vision grossly intact. Mucous membranes are dry. NECK: Shows flat neck veins. CHEST: Slightly coarse. HEART: Irregularly irregular. ABDOMEN: Soft and nontender. EXTREMITIES: Showed trace edema of the right leg. LABORATORY DATA: Hemoglobin is 10.4. Sodium 139, potassium 5.1, chloride 101, bicarbonate 20, creatinine 4.2, BUN 51. ASSESSMENT AND PLAN: 1. Jfnmt-pb-wcbttbr kidney disease. He is showing volume depletion. Apparently, he has been on some furosemide at home and for other home medications, please see the list in the chart. IV fluids are being given and are indicated at this time. He will need his Sinemet. I do not see that he has been restarted on his medicines for orthostatic hypotension, that will have to be discussed. 2. Glucose intolerance. I will need to review his history of glucose intolerance. He has been given sliding scale. 3. Postural hypotension. He has been on midodrine and Florinef in the past. 4. Parkinson's disease. He has been on Sinemet he has been restarted on that. 5. Progressive dementia. 6. Progressive cachexia. 7. Chronic atrial fibrillation. I do not believe he has been on blood thinners due to his frequent ____. <ELECTRONICALLY SIGNED> By: Dani Alanis MD 07/25/18 1127 0814 0920 Dani Alanis MD /nt
--- NOTE | 2018-07-25 12:41 | NUR ---
spoke with RN practioner 5N they are cont to follow. casemgt following.
[2018-07-25 15:30] VITALS: BP 108/71
--- NOTE | 2018-07-25 18:48 | NUR ---
ASSESSMENT DOCUMENTED. PT ORIENTED TO SELF. HAS BEEN SLEEPING MOST OF THE SHIFT. REPOSITIONED AND TURNED Q 2HOURS AND NEEDED. ORDERS GIVEN TO PLACE JO FOR SCRICT I&O. VSS. AT THE BEDSIDE. NO RESPITORY OR CARDIAC DISCTRESS NOTED. WILL CONTINUE TOP MONITOR.
[2018-07-25 19:45] VITALS: BP 111/62
[2018-07-26 04:02] LABS: ALBUMIN 2.4 g/dL (3.4-5.0); CALCIUM 8.1 mg/dL (8.5-10.1); CREATININE 4.6 mg/dL (0.7-1.3); PHOSPHORUS 4.4 mg/dL (2.5-4.9); POTASSIUM 4.7 mmol/L (3.5-5.1)
[2018-07-26 04:04] LABS: ABSOLUTE NEUTROPHILS 10.9 thou/uL (1.4-8.2); BASOPHILS 0.3 % (0.0-2.0); EOSINOPHILS 0.1 % (0.0-3.0); HEMOGLOBIN 9.6 gm/dL (14.0-18.0); LYMPHOCYTES 3.9 % (24.0-44.0); MCH 31.8 pg (26.0-34.0); MCHC 31.9 g/dL (28.0-37.0); MCV 99.7 fL (80.0-100.0); MONOCYTES 3.7 % (1.0-8.0); PLATELET COUNT 119 thou/uL (150-400); RBC 3.01 mil/uL (4.50-6.00); RDW 17.9 % (10.5-14.5); WBC 11.9 thou/uL (4.0-11.0)
[2018-07-26 04:37] VITALS: BP 114/58
--- NOTE | 2018-07-26 05:47 | NUR ---
ASSUMED PT CARE AT 1900 WITH NO SIGN OF DISTRESS NOTED IN PT. FAMILY AT BEDSIDE. PT IS LETHARGIC BUT STABLE. ASSESSMENT DOCUMENTED. VITAL SIGN STABLE. PT IS STILL AFIB ON THE MONITOR. SCHEDULED MEDS ADMINISTERED TO PT. PT TOLERATED MEDICATION INTAKE. SPOUSE DENIES ANY FURTHER NEEDS AT THIS TIME.
[2018-07-26 07:18] VITALS: BP 109/78
[2018-07-26 12:35] VITALS: BP 138/116
--- NOTE | 2018-07-26 12:40 | HC ---
[facility] [place] [address] CONSULTATION Name: HOWARDISAIAH E Room #: 201-P [facility] IN M.R.#: [id number] Admission: 07/23/18 Attend Phys: Torito Francois Discharge: Date of : 40 Report #: [id number] THIS REPORT FOR: //name// CC: Torito Francois Beatrice Drummond DATE OF SERVICE: 07/24/2018 HISTORY OF PRESENT ILLNESS: The patient is a 78-year-old white male who I was asked to see in the hospital today for cardiac evaluation. The patient has an extensive past medical history. He has had multiple hospitalizations here at [facility]. Unfortunately, the patient was drowsy at this time, barely arousable. He does not answer questions. There are no family members available. He was actually admitted here in 03/2017, a little over a year ago. The patient has Parkinson's disease and is not very active. He has chronic kidney disease and is followed by Nephrology. He apparently had been living at home with his . He has a history of orthostatic hypotension. He was admitted here to [facility] in 05/2017 with orthostatic hypotension. At that time, there was a note that he was unable to ambulate. The patient has been in a care center. Apparently, he was sent from the care center to [facility] yesterday with fatigue and declining health. He had poor appetite and has been less responsive. He was admitted to [facility] yesterday and cardiac evaluation was requested. PAST MEDICAL HISTORY: Significant for anemia, chronic kidney disease, orthostatic hypotension, Parkinson's disease. MEDICATIONS: At the care center include Xanax, carvedilol, furosemide, sertraline, amantadine, Protonix, Sinemet, aspirin. He has had previous cholecystectomy, vasectomy. He has a history of cardiomyopathy. He actually had an echocardiogram in 08/2017 as an outpatient that showed evidence of a cardiomyopathy with left ventricular hypertrophy, ejection fraction of 30-35%, left atrial enlargement, aortic sclerosis. He has been followed by my partner, Dr. Con Roque. FAMILY HISTORY: Cannot be obtained. SOCIAL HISTORY: Cannot be obtained. REVIEW OF SYSTEMS: Cannot be obtained. PHYSICAL EXAMINATION: VITAL SIGNS: Blood pressure is 110/70, pulse is 90. He is afebrile. HEENT: He was anicteric. Conjunctivae pink. Mucous members appear dry. NECK: Veins do not appear distended. [facility] [address] [address] CONSULTATION Name: ISAIAH HOWARD Room #: 201-P [facility] IN ..#: [id number] Admission: 07/23/18 Attend Phys: Torito Francois Discharge: Date of : 40 Report #: [id number] CHEST: Clear to auscultation. CARDIOVASCULAR: Regular rate and rhythm, grade 2 systolic ejection murmur. ABDOMEN: Soft. EXTREMITIES: Had no pitting edema. SKIN: Cool and dry. NEUROLOGIC: Very slow moving, would not respond to verbal commands. LABORATORY DATA: His workup in the Emergency Room yesterday, sodium 139, potassium 5.1, BUN 51, creatinine 4.2. In the past, it has been from the 2.0-2.4 range. Albumin is 2.9. BNP 11,763. White blood cell count 11.9, hemoglobin 10.4. It has been as low as 6.7 in 05/2017. IMPRESSION AND RECOMMENDATIONS: 1. Parkinson's disease. The patient is basically bedridden. 2. History of orthostatic hypotension. The patient has been on midodrine. 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 3. Cardiomyopathy. Reason unclear. The patient has been on a beta bettina, but he cannot tolerate an ROSIO inhibitor nor ARB because of low blood pressure and history of orthostatic hypotension. I would not recommend spironolactone because of his chronic kidney disease. 4. Chronic kidney disease. Suspect exacerbated by dehydration. I would hold his diuretics at this time. 5. Anemia. No history of bleeding. <ELECTRONICALLY SIGNED> By: Fred Smith MD, [facility] 07/26/18 1240 0707 0843 Fred Smith MD, FACC /nt
--- NOTE | 2018-07-26 12:47 | NUR ---
WOUND CONSULT; ASSESSMENT; A SACRAL WOUND RE; FRICTION SHEARING. ERYTHEMA TO PERIWOUND, PINK WOUND BED. RECOMMENDATIONS; APPLY BARRIER CREAM DAILY/PRN/ ADD LOW AIR LOSS PUMP DISCUSSED WITH RN
--- NOTE | 2018-07-26 14:20 | NUR ---
spoke with , 5n in process of evaluation. agreeable for referral to [facility].
--- NOTE | 2018-07-26 15:22 | NUR ---
FAXED REFERRAL TO [facility] [place]POKE WITH KENDALL IN ADM. SHE WILL REVIEW REFERRAL AND F/U IN AM. DCP TO FOLLOW.
[2018-07-26 16:25] VITALS: BP 111/62
--- NOTE | 2018-07-26 17:18 | NUR ---
VSS. PT DENIED PAIN OR DISCOMFORT. TURNED AND REPOSITIONED Q 2 HRS AND NEEDED. SEEN BY DR. CALDWELL. ORDERS NOTED. UPDATED ON PT PROGRESS. WILL CONTINUE TO MONITOR.
[2018-07-26 20:00] VITALS: BP 106/61
[2018-07-27 04:03] LABS: ALBUMIN 2.4 g/dL (3.4-5.0); CALCIUM 8.1 mg/dL (8.5-10.1); CREATININE 4.5 mg/dL (0.7-1.3); PHOSPHORUS 4.1 mg/dL (2.5-4.9); POTASSIUM 4.3 mmol/L (3.5-5.1)
--- NOTE | 2018-07-27 04:04 | NUR ---
ASSESSMENT DOCUMENTED. PATIENT LETHARGIC BUT AROUSABLE. PATIENT WAS ABLE TO ANSWER HIS NAME. PLACE, BIRTHDATE WHEN ASKED BY THE . MINIMAL MOVEMENT ON UPPER EXTREMITIES. DEMIES PAIN. COGWHEEL RIGIDITY OM BOTH UPPER EXTREMITIES. AFIB RATE CONTROLLED ON THE MONITOR. DIMINISHED LUNGS SOUNDS. 02 SATS AT 97% ON 3 L/NC. NON PRODUCTIVE COUGH NOTED. JO CATHETER DRAINING TO A MINIMAL YELLOW REDDISH OUTPUT. EYTHEMA TO PERIWOUND ON SACRAL AREA SACRAL. SACRAL BED PINK. TURNING EVERY 2 HOURS DONE. WOUND CARE DONE. BM NOTED 2X, BEDBATH DONE. PERIANAL CARE DONE. ORAL CARE DONE. MAINTAINED ON FALL PRECAUTION.
[2018-07-27 04:30] VITALS: BP 121/55; BP 97/72
[2018-07-27 07:49] VITALS: BP 128/90
--- NOTE | 2018-07-27 15:55 | NUR ---
Case discussed with the care team. Pt still poorly responsive. Code status updated today per Dr. Alanis. Spouse has went home this afternoon to rest. [facility] following along and notes that the pt has a new snf benefit.
--- NOTE | 2018-07-27 17:49 | NUR ---
ASSESSMENT CHARTED. VSS. POOR APPETITE. HAD SWALLOW STUDY TODAY. EVALUATED BY PT/OT. TURNED AND REPOSITIONED Q 2 HOURS AND NEEDED. CODE STATUS CHANGED. WOUND CARE PROVIDED. AT THE BEDSIDE. SEEN BY DR PRATHER AND DR CALDWELL. ORDERS NOTED. WILL CONTINUE TO MONITOR.
[2018-07-27 20:00] VITALS: BP 111/54
--- NOTE | 2018-07-28 02:01 | NUR ---
PATIENT LETHARGIC BUT AROUSABLE, ORIENTED TO SELF AND BIRTHDATE, HE KNOWS THAT HE WAS IN THE HOSPITAL BUT HE SAID HE DOES NOT KNOW WHAT THE HOSPITAL IS. HE ALSO SAID THAT HE DIDNT KNOW WHY HE WAS IN THE HOSPITAL. REORIENTATION DONE. 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 AFIB RATE CONTROLLED ON THE MONITOR. 3+ EDEMA ON THE RIGHT HIP AND RIGHT LOWER EXTREMITY. LUNGS SOUNDS COARSE ALL LOBES. 02 AT 3L/NC GURGGLY SOUNDS ON THE UPPER AIRWAY NOTED. COORDINATED WITH RT, PRN BREATHING TX GIVEN, SUCTIONED PER OREM DONE, CREAMY THICK SECRETIONS OBTAINED. MAINTAINED ON ASPIRATION PRECAUTION. JO CATHETER TO URINE BAG DRAINING TO A YELLOWISH URINE OUTPUT. SCD ON. AIRLOSS FLOW MATTRESS ON. TURNING EVERY 2 HOURS DONE. ORAL CARE RENDERED. SODIUM BICARB 75 MEQS IN D5 1/2 NSS INFUSING WELL AT 60 ML/HOUR ON RIGHT HAND. BM NOTED, BEDBATH USING CHLORHEXIDINE WIPES DONE. LINEN CHANGED. PERIANAL CARE DONE, WOUND CARE DONE. FF UP POC.
[2018-07-28 04:23] LABS: ALBUMIN 2.2 g/dL (3.4-5.0); CREATININE 4.4 mg/dL (0.7-1.3); PHOSPHORUS 3.8 mg/dL (2.5-4.9); POTASSIUM 3.8 mmol/L (3.5-5.1)
[2018-07-28 06:43] VITALS: BP 111/54
--- NOTE | 2018-07-31 09:54 | HC ---
[facility] [place] [address] CONSULTATION Name: ELEISAIAH Burkett Room #: 201-P [facility] IN M.R.#: [id number] Admission: 07/23/18 Attend Phys: Torito Francois Discharge: 07/28/18 Date of : 40 Report #: [id number] THIS REPORT FOR: //name// CC: Torito Stricklanddhara Drummond DATE OF SERVICE: 07/25/2018 HISTORY OF PRESENT ILLNESS: This is a 78-year-old male patient who was evaluated by me to maximize our Parkinson medication and to prognosticate him from encephalopathy. The patient does not provide any history and does not let me examine him. I called the patient's son who did not have much history and I called the patient's who provided most of the history. It looks like the patient was diagnosed with Parkinson's disease about 16 years ago. He was followed up by Dr. Coello at [facility]. Recently they made an appointment at [facility] with another neurologist, Dr. Kaur because they did not want to travel all the way to . The patient's baseline quality is pretty poor. He uses wheelchair. He has severe Parkinson disease. He needs help with virtually all the day-to-day activities. The patient at one time did have hypotension. He used to be on midodrine but then that was discontinued and it has been started again. Reviewing the records, it would appear the patient has other problem and one of the problem has been that his blood sugar was low on admission and it has been less than 20 yesterday. REVIEW OF SYSTEMS: Positive for Parkinson disease, which is what looks like severe disability. REVIEW OF SYSTEMS: Indicate that he is on multiple medications, which can affect the autonomic nervous system. His kidney function has deteriorated. Overall, the patient has significant deterioration and his symptoms recently. He does have some history of anxiety as I understand. This was his relevant 14-point review of system. Partly, it is taken from the chart and partly it is taken from talking to the family members. The patient does not provide any history. PAST MEDICAL HISTORY: Positive for Parkinson disease. FAMILY HISTORY: Negative for early age stroke. SOCIAL HISTORY: He lives with his and requires a lot of effort in day-to-day activity. PHYSICAL EXAMINATION: [facility] [address] [place] [address] CONSULTATION Name: ISAIAH HOWARD Room #: 201-P [facility] IN .R.#: [id number] Admission: 07/23/18 Attend Phys: Torito Francois Discharge: 07/28/18 Date of : 40 Report #: [id number] NEUROLOGICAL: The patient's examination is very limited. He will not follow any commands for me. He would not move anything for me. When I tried to examine his eyes, he shut it closely, so I cannot do the fundus examination. He does not appear to have any meningeal sign. His reflexes are diminished. His tone does look increased. CARDIAC: Examination is unremarkable. He does not appear to have much respiratory difficulty or rhonchi on either side. His pulses are difficult to feel. He has no edema. GENERAL: He is thin individual. NECK: He has no thyroid mass. VITAL SIGNS: His blood pressure is 116/76 with midodrine, pulse is 107 and temperature is 98. LABORATORY DATA: His last creatinine was 4.5. He does not have any imaging study of the brain. IMPRESSION AND RECOMMENDATIONS: 1. Longstanding advanced Parkinson disease. It would not be possible adjust the patient's medication at this stage because the medications need to be titrated to the clinical symptoms including ambulation and tremor and it is not possible to do that in this stage. 2. The patient's baseline quality of the life is quite poor. With multiple systemic problems going on, his prognosis is pretty guarded. Further evaluation to determine the neurological prognosis accurately can be done. That will require further testing including CAT scan and an EEG. The patient's clearly told me that she does not want any of those testing and antibiotics us to concentrate on her kidney problem. I did ask her to consider how aggressive she wants to be because of the poor quality of the life in the baseline and she is going to think about it but she clearly told me that he does not want any further neurological testing and we will not schedule that. We will be available as needed and I will try to discuss with you but since she has expressed a desire not to do any further neurological testing, we will not follow up this patient. Thank you very much for this referral. <ELECTRONICALLY SIGNED> By: Jeyson Watts MD 07/31/18 [id number] Jeyson Watts MD /nt
== END 2018-07-28 04:10 | DRG 682 ==
LOC: 2N 13:02
PROVIDERS: Internal Medicine; Internal Medicine Cardiovascular Disease; Internal Medicine Nephrology; ADMIT Hospitalist
DX: N17.9 Acute kidney failure, unspecified (principal); G92 Toxic encephalopathy; E87.2 Acidosis; I42.9 Cardiomyopathy, unspecified; I50.22 Chronic systolic (congestive) heart failure; I13.0 Hypertensive heart and chronic kidney disease with heart failure and stage 1 through stage 4 chronic kidney disease, or unspecified chronic kidney disease; G20 Parkinson's disease; D64.9 Anemia, unspecified; N40.0 Benign prostatic hyperplasia without lower urinary tract symptoms; I95.1 Orthostatic hypotension; F02.80 Dementia in other diseases classified elsewhere, unspecified severity, without behavioral disturbance, psychotic disturbance, mood disturbance, and anxiety; I48.2 Chronic atrial fibrillation; F32.9 Major depressive disorder, single episode, unspecified; E86.0 Dehydration; E87.5 Hyperkalemia; K11.20 Sialoadenitis, unspecified; R13.10 Dysphagia, unspecified; Z66 Do not resuscitate; F41.9 Anxiety disorder, unspecified; I46.9 Cardiac arrest, cause unspecified; E16.2 Hypoglycemia, unspecified; R33.9 Retention of urine, unspecified; L21.9 Seborrheic dermatitis, unspecified; G47.00 Insomnia, unspecified; R14.0 Abdominal distension (gaseous); N18.9 Chronic kidney disease, unspecified; Z90.49 Acquired absence of other specified parts of digestive tract; Z98.52 Vasectomy status; Z68.21 Body mass index [BMI] 21.0-21.9, adult; Z87.891 Personal history of nicotine dependence
CPT/HCPCS: 10081; 10797